=== PATIENT | male | born 1975 | race Caucasian/White ===

== ENCOUNTER 2016-09-15 14:11 | Emergency (ER) | payer OTHER, MEDICAID ==
[~2016-09-15] VITALS: Ht 193 cm; Wt 113.4 kg
[2016-09-15 16:02] LABS: Salicylate 2.2 mg/dL (2.8-20.0)
[2016-09-15 16:03] LABS: Acetaminophen < 2.0 ug/mL (10-30); Albumin 4.3 g/dL (3.4-5.0); BUN/Creatinine Ratio 10.9; Bilirubin, Total 0.6 mg/dL (0.2-1.0); Calcium 9.3 mg/dL (8.5-10.1); Potassium 3.7 mmol/L (3.5-5.1); Total Protein 8.5 g/dL (6.4-8.2)
[2016-09-15 16:05] LABS: Basophils # (auto) 0 uL; Basophils % (auto) 0.3 % (0.0-2.0); DEFINITIVE VIEW TRANSMISSION; Eosinophils # (auto) 0.2 uL; Eosinophils % (auto) 1.6 % (0.0-7.0); Hematocrit 48.5 % (41.0-53.0); Hemoglobin 15.2 g/dL (13.5-17.5); Lymphocytes # (auto) 1.9 uL; Lymphocytes % (auto) 16.4 % (10.0-50.0); Mean Corpuscular Hemoglobin 23.8 pg (28.0-32.0); Mean Corpuscular Hgb Conc. 31.4 g/dL (32.0-36.0); Mean Corpuscular Volume 75.9 fL (80.0-100.0); Mean Platelet Volume 10.7 fL (7.4-10.4); Monocytes # (auto) 0.2 uL; Monocytes % (auto) 2.1 % (0.0-12.0); Neutrophils # (auto) 9.3 uL; Neutrophils % (auto) 79.6 % (37.0-80.0); Platelet Count (auto) 170 10^3/uL (140-450); Red Cell Distribution Width 15.7 % (11.6-16.0); White Blood Cell 11.6 10^3/uL (4.4-10.8)
[2016-09-16 01:01] LABS: Urine Bilirubin Negative (Negative); Urine Blood Negative /uL (Negative); Urine Ca Oxalate Crystal FEW (None Seen); Urine Color Yellow (Yellow); Urine Glucose Normal (Normal); Urine Ketone Negative (Negative); Urine Mucus FEW (None Seen); Urine Nitrite Negative (Negative); Urine RBC 1 /hpf (0 - 3); Urine Urobilinogen Normal (Negative); Urine pH 5.5 (5.0-8.0)
[2016-09-16] MEDS ORDERED: risperiDONE 1 MG TAB PO ONE (09:30)
[2016-09-16] MEDS ORDERED: LORazepam 0.5 MG TAB PO ONE (09:30)
[2016-09-16 11:20] VITALS: BP 126/64
== END 2016-09-16 11:22 | disposition short-term general hospital (02) ==
LOC: ER 14:11 → EDSEX 14:11 → ER 09-16 11:22
DX: F25.9 Schizoaffective disorder, unspecified (principal); R44.0 Auditory hallucinations; F17.210 Nicotine dependence, cigarettes, uncomplicated; F12.10 Cannabis abuse, uncomplicated; Z59.0 Homelessness; I10 Essential (primary) hypertension
CPT/HCPCS: 36415; 71020; 80053; 80329; 81001; 85025; 93005; 99285; G0434